=== PATIENT | male | born 1970 | race Caucasian/White ===

== ENCOUNTER 2019-07-15 17:24 | Emergency (ER) | payer SELFPAY ==
--- NOTE | ~2019-07-15 | XR_ITS ---
EXAMINATION: XR chest 2V DATE: 07/15/2019 18:00 INDICATION: Left-sided chest pain TECHNIQUE: PA and lateral views of the chest were obtained. COMPARISON: None FINDINGS: The lungs are clear with no focal airspace opacities, pulmonary edema, pleural effusion or pneumothor ax. The cardiomediastinal silhouette is normal. Anterior plate and screw fixation for anterior spinal fusion at the lower cervical spine. IMPRESSION: 1. No acute cardiopulmonary disease. Reviewed, dictated and finalized at location [facility]
[2019-07-15 17:34] VITALS: BP 127/91; PULSE 74; RESP 17; TEMP 36.5; O2SAT 100
--- NOTE | 2019-07-15 17:34 | ECG_ITS ---
Measurements Intervals [place] Rate: 68 P: 78 NC: 128 QRS: 67 QRSD: 94 T: 59 QT: 409 QTc: 437 Interpretive Statements SINUS RHYTHM NORMAL ECG Electronically Signed On 07-15-2019 20:02:53 NURSING FACULTY by Ty Christy D.O.
[2019-07-15 17:46] LABS: Basophils Absolute Auto 0.1 K/mm3 (0.0-0.1); Basophils Percent Auto 1.1 % (0.2-1.2); Eosinophils Absolute Auto 0.3 K/mm3 (0-0.3); Eosinophils Percent Auto 3.3 % (0-4.4); Hematocrit 39.7 % (42.0-52.0); Hemoglobin 12.4 g/dL (14.0-18.0); Immature Granulocyte Absolute 0.02 K/mm3 (0.00-0.031); Immature Granulocyte Percent A 0.2 % (0-0.5); Lymphocytes Absolute Auto 2.21 K/mm3 (0.9-3.2); Lymphocytes Percent Auto 26.4 % (18.3-44.2); Mean Corpuscular HGB Conc 31.2 g/dl (32-36); Mean Corpuscular Hemoglobin 28.6 pg (26-34); Mean Corpuscular Volume 91.7 fl (80-100); Mean Platelet Volume 10.1 fl (7.4-10.4); Monocytes Absolute Auto 0.6 K/mm3 (0.1-0.6); Monocytes Percent Auto 7.5 % (2.6-8.5); Neutrophils Absolute Auto 5.2 K/mm3 (1.3-6.7); Neutrophils Percent Auto 61.5 % (45.5-73.1); Platelet Count Result 336 k/mm3 (150-375); Red Blood Count 4.33 M/mm3 (4.6-6.20); Red Cell Distribution Width 13.7 % (11.5-14.5); White Blood Count 8.4 K/mm3 (4.5-10.0)
[2019-07-15 17:54] LABS: Prothrombin Time 13.2 Seconds (11.1-14.7)
[2019-07-15 17:55] LABS: Partial Thromboplastin Time 27.1 SECONDS (22.3-36.8)
[2019-07-15 17:56] LABS: Blood Urea Nitrogen 12 mg/dL (9-20); Carbon Dioxide 30 mmol/L (22-30); Chloride 96 mmol/L (98-107); Estimated Glomerular Filt Rate > 60; Glucose 101 mg/dL (75-110); Potassium 3.6 mmol/L (3.4-5.0); Sodium 138 mmol/L (137-145)
[2019-07-15 18:07] LABS: Troponin I < 0.012 ng/mL (0.000-0.034)
[2019-07-15] MEDS: ASPIRIN 81 MG CHEWABLE TABLET 324 MG PO (20:04)
--- NOTE | 2019-07-15 20:14 | PC.NURSE ---
Patient stated he didn't want an IV at this time.
[2019-07-15 20:41] VITALS: BP 176/105; PULSE 72; RESP 20; O2SAT 95
[2019-07-15 20:44] LABS: Troponin I < 0.012 ng/mL (0.000-0.034)
--- NOTE | 2019-07-15 21:05 | ED.CHESTPAIN ---
HPI - Chest Pain General Chief Complaint: Chest Pain Stated Complaint: CP Time Seen by Provider: 07/15/19 20:21 Source: patient and RN notes reviewed Mode of arrival: ambulatory Limitations: no limitations History of Present Illness HPI narrative: A 48 y/o male presents to the ED with CP beginning at 5 PM this evening. 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 He reports that the Nitro's helped to alleviate his pain which is now only a 3/10 in severity. He notes that he has a hx of an OH and a cardiac cath with a stent placement. He denies any fevers, chills, sweats, SOB, N/V/D, ABD pain, and any other medical complaints at this time. MD complaint: chest pain Pertinent past history: coronary artery disease and prior OH (x3) Onset (ago): hour(s) (3) Timing of current episode: still present (but improving) Onset: during exertion (carrying steel beams) Relieving factors: nitroglycerin (x2) Treatment prior to arrival: nitroglycerin (x2) Related Data Allergies Allergy/AdvReac Type Severity Reaction Status Date / Time Penicillins Allergy Severe Swelling Verified 07/15/19 20:06 of Lip/Tongue/Throat tramadol Allergy Hives Verified 07/15/19 20:06 Review of Systems Review of Systems: All systems reviewed & are unremarkable except as noted in HPI and below Constitutional: Constitutional: Denies chills, Denies fatigue, Denies fever(s), Denies headache(s) and Denies night sweats Eyes: Eyes: Denies change in vision, Denies loss of vision and Denies other visual disturbances ENT: Denies headache(s), Denies hoarseness, Denies epistaxis, Denies nasal congestion and Denies sore throat Cardiovascular: Cardiovascular: Reports chest pain (improving), Denies leg edema, Denies palpitations and Denies dyspnea Respiratory: Respiratory: Denies cough, Denies dyspnea and Denies wheezing Gastrointestinal: Gastrointestinal: Denies abdominal pain, Denies diarrhea, Denies nausea and Denies vomiting Genitourinary: Genitourinary: Denies hematuria, Denies dysuria and Denies urinary frequency Musculoskeletal: Musculoskeletal: Denies abnormal gait, Denies deformity, Denies joint swelling, Denies muscle weakness and Denies numbness Integumentary/Breasts: Skin/Breast: Denies rash, Denies unusual bruising and Denies wounds Neurologic: Denies abnormal gait, Denies headache(s), Denies focal weakness, Denies loss of vision and Denies numbness Psychiatric: Psychiatric: Reports no additional psychiatric complaints Endocrine: Endocrine: Denies fatigue and Denies palpitations Hematologic/Lymphatic: Hematologic/Lymphatic: Denies easy bleeding and Denies easy bruising Allergic/Immunologic: Allergic/Immunologic: Denies wheezing PMFSH Past Medical History Medical History (Updated 07/16/19 @ 01:02 by Jasper Oakes MD) Medical history unknown Myocardial infarction Surgical History Surgical History (Updated 07/15/19 @ 21:06 by Aristeo Hernandez) Hx of cardiac cath Hx of heart artery stent Surgical history unknown Social History Social History (Updated 07/15/19 @ 21:47 by Aristeo Hernandez) Smoking status: Unknown if ever smoked Gender identity (if verbalized by the patient): Male Exam Const: General: healthy appearing, no acute distress and well developed Nutritional Appearance: well nourished Orientation/consciousness: patient oriented x3 (alert) and Other orientation findings (Alert) Limitations: no limitations HENMT: Head: normocephalic and atraumatic Ears: external ears normal General nose exam: No nasal discharge present and no epistaxis Face and sinus: face symmetric Mouth: Yes lip normal, Yes tongue normal and Yes moist mucous membranes Throat: other (No exudate, no erythema) Eyes: Conjunctivae: conjunctivae normal Sclera: sclerae normal EOM: EOMs intact bilaterally Neck: Neck: full ROM, no lymphadenopathy and supple Thyroid: thyroid normal Chest: Chest palpation & inspec
[2019-07-15 21:58] VITALS: BP 132/89; PULSE 64; RESP 18; O2SAT 97
--- NOTE | 2019-07-15 21:58 | PC.NURSE ---
Patient stated chest pain is gone doesn't want the Nitro, wanting to go home.
[2019-07-15 22:52] VITALS: BP 147/88; PULSE 70; RESP 18; O2SAT 96
[2019-07-15 23:55] LABS: Troponin I < 0.012 ng/mL (0.000-0.034)
[2019-07-16 00:08] VITALS: BP 130/78; PULSE 78; RESP 18; O2SAT 97
[2019-07-16 01:12] VITALS: BP 144/86; PULSE 63; RESP 18; O2SAT 100
== END 2019-07-16 01:15 | disposition home or self-care (01) ==
PROVIDERS: Emergency Medicine; Emergency Provider Emergency Medicine
DX: R07.89 Other chest pain (principal); I25.10 Atherosclerotic heart disease of native coronary artery without angina pectoris; I25.2 Old myocardial infarction
CPT/HCPCS: 36415; 71046; 80048; 84484; 85025; 85610; 85730; 93005; 99284; A9270